=== PATIENT | male | born 1975 | race Caucasian/White ===

== ENCOUNTER 2017-01-21 01:05 | Emergency (ER) | payer OTHER ==
--- NOTE | 2017-01-21 01:48 | ED NURSING NOTES ---
Clinical Report - Nurses [facility] [address] [place] [address] 01/21/2017 1:05 Patient: ELÍAS DUKES TRIAGE Triage time 01:15. Acuity: LEVEL 4. Chief Complaint: (Sores on Head, arms and hands). 01:19. Alert. --01:19 Willard De Souza R.N. 01:15 01/21/17. BP: 147/92. HR: 104. RR: 16. O2 saturation: 98% on room air. Temp: 98.4 F (oral). Pain level now: 10/06. --01:19 Willard De Souza R.N. Weight: 102 kg stated. Height/Length: 71 inches Per Patient. BMI: 31.4. --01:18 Willard De Souza R.N. Medications None. --01:18 Willard De Souza R.N. Allergies Codeine. Penicillins. --01:18 Willard De Souza R.N. History Arrived by private vehicle. Historian: patient. Accompanied by friend. Primary physician (Anoop). Onset. (about 1 months ago, worse for the last 3 days). 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 PAST MEDICAL HX: Immunizations: up-to-date. SOCIAL HX: Current every day heavy tobacco smoker- less than 1 pack per day. History of drug use: marijuana. (every other day). No alcohol use. No infectious disease exposure. ABUSE ASSESSMENT: No report of abuse. FALL RISK ASSESSMENT: Fall risk assessment completed. No fall risk identified. NUTRITIONAL RISK ASSESSMENT: The nutritional risk assessment revealed no deficiencies. FUNCTIONAL ASSESSMENT: Functional assessment: no impairments noted. LEARNING NEEDS ASSESSMENT: The learning needs assessment revealed no barriers. SKIN INTEGRITY ASSESSMENT: Skin integrity risk assessment completed. No skin integrity risk identified. --01:19 Willard De Souza R.N. PROBLEMS: Hernia. Carpal Tunnel Syndrome. Hypertension. Headache. Bipolar Disorder. Gastroesophageal Reflux. Abscess. Gastroesophageal Reflux Disease. --01:18 Willard De Souza R.N. ADDITIONAL SURGERIES: Back Surgery. Carpal Tunnel Surgery. Fracture Repair. Heart surgery. Hernia Repair. Inguinal Hernia Repair. --01:18 Willard De Souza R.N. Interventions ID band on patient. To treatment room. --01:19 Willard De Souza R.N. PHYSICAL ASSESSMENT 01:20. Ambulatory to room. GENERAL / NEURO / PSYCH: Alert. Oriented X 4. HEENT: No facial asymmetry noted. Mucous membranes are pink. RESPIRATORY: Respirations not labored. SKIN: Skin is warm and dry. Normal skin turgor. ( numerous sores in various stages of healing on head hands and arms). --01:20 Willard De Souza R.N. NURSING PROGRESS NOTES 01:21. Head of bed elevated. Two patient identifiers checked. Call light placed in reach. Bed placed in lowest position. Brakes of bed on. Patient ready for evaluation- chart flagged. --01:21 Willard De Souza R.N. 01:54 Woke patient to go over discharge instructions. The patient is sleeping. RESPIRATORY: No respiratory distress. SKIN: Skin is warm and dry. Skin color within normal limits. --01:57 Willard De Souza R.N. DISPOSITION / DISCHARGE Departure time: 01:57. Condition at departure: stable. No learning barriers present. Discharge instructions provided and reviewed with the patient. Reviewed medication(s) side effects, precautions, dosing and course information. Prescription(s) given to the patient. Patient verbalized understanding. Written instructions provided in Liberian. The patient was discharged home and accompanied by kiln mechanic. He left the Emergency Department ambulatory and via private vehicle. Claims Auditor driving. FALL RISK ASSESSMENT: Fall risk assessment completed. No fall risk identified. --01:57 Willard De Souza R.N. Locked/Released at 01/21/2017 1:58 by Willard De Souza R.N.
--- NOTE | 2017-01-21 01:48 | ED CLINICAL REPORT ---
Clinical Report - Physicians/Mid Levels [facility] [address] [place] [address] 01/21/2017 1:05 [id number] Time Seen: 01:41 Jan 21 2017. Arrived- By private vehicle. Historian- patient. HISTORY OF PRESENT ILLNESS Chief Complaint: SKIN RASH and LESION. 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 It is described as itchy and painful. It has been located on the right dorsum of hand, left hand and dorsum of hand and scalp and neck. No cause has been identified. (started out as pimple on scalp. Worries about MRSA. Denies doing any methamphetamines. No rash between fingers , in axilla or groin.). Similar symptoms previously: None. Recent medical care: Not recently seen/assessed. REVIEW OF SYSTEMS No fever, chills, sore throat, cough or difficulty breathing. No hoarseness, lump in throat, enlarged lymph nodes, eye irritation or chest pain. No abdominal pain, nausea, difficulty with urination, genital lesions or joint pain. No vomiting. All systems otherwise negative, except as recorded above. PAST HISTORY Hernia. Carpal Tunnel Syndrome. Hypertension. Headache. Bipolar Disorder. Gastroesophageal Reflux. Abscess. Gastroesophageal Reflux Disease. ADDITIONAL SURGERIES: Back Surgery. Carpal Tunnel Surgery. Fracture Repair. Heart surgery. Hernia Repair. Inguinal Hernia Repair. Medications: None. Allergies: Codeine. Penicillins. SOCIAL HISTORY Heavy tobacco smoker (cigarette)- 1 pack per day. Never smoker. History of weekly drug use: marijuana. ADDITIONAL NOTES The nursing notes have been reviewed. PHYSICAL EXAM Vital Signs: 01/21/2017 01:15 BP: 147/92. HR: 104. RR: 16. O2 saturation: 98%. Temp: 98.4 F. Pain level now: 3/10. Appearance: Alert. No acute distress. Anxious. Eyes: Pupils equal, round and reactive to light. Conjunctivae and eyelids normal. ENT: Pharynx normal. Neck: Neck supple. Respiratory: No respiratory distress. Abdomen: Nontender. Skin: Rash present on the scalp (Pt has a shaved area of the scalp at the vertex that appears to be a healing excoriations. Pt claims there are worms here and she wants this part of her scalp removed today.). Extremities: Extremities nontender. (neurogenic picking over the hands and posterior neck,). Neuro: Oriented X 3. No motor deficit. No sensory deficit. PROGRESS AND PROCEDURES Course of Care: Pt clearly delusional and hallucinating. She feels she has worms over the scalp and other skin areas on her extremities. 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 Pt already has a dermatology referral and I reassured her that she should get an expert opinion before removing scalp tissue. Patient/family counseled. Disposition: Discharged. Condition: stable and unchanged. CLINICAL IMPRESSION Skin picking over hands, scalp and neck with secondary infection. INSTRUCTIONS Warnings: Further evaluation is necessary. Prescription Medications: Bactrim DS 800 mg / 160 mg: Take 1 tablet orally every 12 hours for 7 days. Dispense fourteen (14). No refills. Substitution is permissible. Cleocin topical solution: Apply to affected areas bid for 1 week. # 1 bottle. OTC Medications: Acetaminophen (available over the counter): take according to label instructions. Follow-up: Follow up with your doctor in five days if not better. Understanding of the discharge instructions verbalized by patient. (Electronically signed by Kavon Berry MD 01/24/2017 6:45)
--- NOTE | 2017-01-21 01:48 | ED NURSING NOTES ---
Clinical Report - Nurses [facility] [address] [place] [address] 01/21/2017 1:05 Patient: ELÍAS DUKES TRIAGE Triage time 01:15. Acuity: LEVEL 4. Chief Complaint: (Sores on Head, arms and hands). 01:19. Alert. --01:19 Willard De Souza R.N. 01:15 01/21/17. BP: 147/92. HR: 104. RR: 16. O2 saturation: 98% on room air. Temp: 98.4 F (oral). Pain level now: 10/06. --01:19 Willard De Souza R.N. Weight: 102 kg stated. Height/Length: 71 inches Per Patient. BMI: 31.4. --01:18 Willard De Souza R.N. Medications None. --01:18 Willard De Souza R.N. Allergies Codeine. Penicillins. --01:18 Willard De Souza R.N. History Arrived by private vehicle. Historian: patient. Accompanied by friend. Primary physician (Anoop). Onset. (about 1 months ago, worse for the last 3 days). 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 PAST MEDICAL HX: Immunizations: up-to-date. SOCIAL HX: Current every day heavy tobacco smoker- less than 1 pack per day. History of drug use: marijuana. (every other day). No alcohol use. No infectious disease exposure. ABUSE ASSESSMENT: No report of abuse. FALL RISK ASSESSMENT: Fall risk assessment completed. No fall risk identified. NUTRITIONAL RISK ASSESSMENT: The nutritional risk assessment revealed no deficiencies. FUNCTIONAL ASSESSMENT: Functional assessment: no impairments noted. LEARNING NEEDS ASSESSMENT: The learning needs assessment revealed no barriers. SKIN INTEGRITY ASSESSMENT: Skin integrity risk assessment completed. No skin integrity risk identified. --01:19 Willard De Souza R.N. PROBLEMS: Hernia. Carpal Tunnel Syndrome. Hypertension. Headache. Bipolar Disorder. Gastroesophageal Reflux. Abscess. Gastroesophageal Reflux Disease. --01:18 Willard De Souza R.N. ADDITIONAL SURGERIES: Back Surgery. Carpal Tunnel Surgery. Fracture Repair. Heart surgery. Hernia Repair. Inguinal Hernia Repair. --01:18 Willard De Souza R.N. Interventions ID band on patient. To treatment room. --01:19 Willard De Souza R.N. PHYSICAL ASSESSMENT 01:20. Ambulatory to room. GENERAL / NEURO / PSYCH: Alert. Oriented X 4. HEENT: No facial asymmetry noted. Mucous membranes are pink. RESPIRATORY: Respirations not labored. SKIN: Skin is warm and dry. Normal skin turgor. ( numerous sores in various stages of healing on head hands and arms). --01:20 Willard De Souza R.N. NURSING PROGRESS NOTES 01:21. Head of bed elevated. Two patient identifiers checked. Call light placed in reach. Bed placed in lowest position. Brakes of bed on. Patient ready for evaluation- chart flagged. --01:21 Willard De Souza R.N. 01:54 Woke patient to go over discharge instructions. The patient is sleeping. RESPIRATORY: No respiratory distress. SKIN: Skin is warm and dry. Skin color within normal limits. --01:57 Willard De Souza R.N. DISPOSITION / DISCHARGE Departure time: 01:57. Condition at departure: stable. No learning barriers present. Discharge instructions provided and reviewed with the patient. Reviewed medication(s) side effects, precautions, dosing and course information. Prescription(s) given to the patient. Patient verbalized understanding. Written instructions provided in [place]ic. The patient was discharged home and accompanied by plumbing foreman. He left the Emergency Department ambulatory and via private vehicle. Income Auditor driving. FALL RISK ASSESSMENT: Fall risk assessment completed. No fall risk identified. --01:57 Willard De Souza R.N. Locked/Released at 01/21/2017 1:58 by Willard De Souza R.N.
--- NOTE | 2017-01-21 01:48 | ED CLINICAL REPORT ---
Clinical Report - Physicians/Mid Levels [facility] [address] [place] [address] 01/21/2017 1:05 [id number] Time Seen: 01:41 Jan 21 2017. Arrived- By private vehicle. Historian- patient. HISTORY OF PRESENT ILLNESS Chief Complaint: SKIN RASH and LESION. 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 It is described as itchy and painful. It has been located on the right dorsum of hand, left hand and dorsum of hand and scalp and neck. No cause has been identified. (started out as pimple on scalp. Worries about MRSA. Denies doing any methamphetamines. No rash between fingers , in axilla or groin.). Similar symptoms previously: None. Recent medical care: Not recently seen/assessed. REVIEW OF SYSTEMS No fever, chills, sore throat, cough or difficulty breathing. No hoarseness, lump in throat, enlarged lymph nodes, eye irritation or chest pain. No abdominal pain, nausea, difficulty with urination, genital lesions or joint pain. No vomiting. All systems otherwise negative, except as recorded above. PAST HISTORY Hernia. Carpal Tunnel Syndrome. Hypertension. Headache. Bipolar Disorder. Gastroesophageal Reflux. Abscess. Gastroesophageal Reflux Disease. ADDITIONAL SURGERIES: Back Surgery. Carpal Tunnel Surgery. Fracture Repair. Heart surgery. Hernia Repair. Inguinal Hernia Repair. Medications: None. Allergies: Codeine. Penicillins. SOCIAL HISTORY Heavy tobacco smoker (cigarette)- 1 pack per day. Never smoker. History of weekly drug use: marijuana. ADDITIONAL NOTES The nursing notes have been reviewed. PHYSICAL EXAM Vital Signs: 01/21/2017 01:15 BP: 147/92. HR: 104. RR: 16. O2 saturation: 98%. Temp: 98.4 F. Pain level now: 3/10. Appearance: Alert. No acute distress. Anxious. Eyes: Pupils equal, round and reactive to light. Conjunctivae and eyelids normal. ENT: Pharynx normal. Neck: Neck supple. Respiratory: No respiratory distress. Abdomen: Nontender. Skin: Rash present on the scalp (Pt has a shaved area of the scalp at the vertex that appears to be a healing excoriations. Pt claims there are worms here and she wants this part of her scalp removed today.). Extremities: Extremities nontender. (neurogenic picking over the hands and posterior neck,). Neuro: Oriented X 3. No motor deficit. No sensory deficit. PROGRESS AND PROCEDURES Course of Care: Pt clearly delusional and hallucinating. She feels she has worms over the scalp and other skin areas on her extremities. 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 Pt already has a dermatology referral and I reassured her that she should get an expert opinion before removing scalp tissue. Patient/family counseled. Disposition: Discharged. Condition: stable and unchanged. CLINICAL IMPRESSION Skin picking over hands, scalp and neck with secondary infection. INSTRUCTIONS Warnings: Further evaluation is necessary. Prescription Medications: Bactrim DS 800 mg / 160 mg: Take 1 tablet orally every 12 hours for 7 days. Dispense fourteen (14). No refills. Substitution is permissible. Cleocin topical solution: Apply to affected areas bid for 1 week. # 1 bottle. OTC Medications: Acetaminophen (available over the counter): take according to label instructions. Follow-up: Follow up with your doctor in five days if not better. Understanding of the discharge instructions verbalized by patient. (Electronically signed by Kavon Berry MD 01/24/2017 6:45)
--- NOTE | 2017-01-24 06:46 | ED MED RECONCILIATION SUMMARY ---
Patient: ELÍAS DUKES Medication Reconciliation Report [facility] VisitID: [id number] [address] [place] [address] 41y, M Registration Date/Time: 01/21/2017 Weight: 102.0 kg Height/Length: 71 in. BMI: 31.4 ALLERGIES: Codeine, Penicillins The patient's Home Medications are listed below: NONE. The source(s) of the original Home Medication information: Not obtained. The following Medications were given to the patient in the Emergency Department: None. The following Medications were prescribed to the patient: Acetaminophen (available over the counter): take according to label instructions. -- Kavon Berry MD Cleocin topical solution: Apply to affected areas bid for 1 week. # 1 bottle. -- Kavon Berry MD Bactrim DS 800 mg / 160 mg: Take 1 tablet orally every 12 hours for 7 days. Dispense fourteen (14). No refills. Substitution is permissible. -- Kavon Berry MD
--- NOTE | 2017-01-24 06:46 | ED DISCHARGE INSTRUCTIONS ---
Patient: ELÍAS DUKES General Instructions [facility] VisitID: [id number] [address] [place] [address] 41y, M Registration Date/Time: 01/21/2017 Skin picking over hands, scalp and neck with secondary infection. INSTRUCTIONS Warnings: Further evaluation is necessary. Prescription Medications: Bactrim DS 800 mg / 160 mg: Take 1 tablet orally every 12 hours for 7 days. Dispense fourteen (14). No refills. Substitution is permissible. Cleocin topical solution: Apply to affected areas bid for 1 week. # 1 bottle. OTC Medications: Acetaminophen (available over the counter): take according to label instructions. Follow-up: Follow up with your doctor in five days if not better. Understanding of the discharge instructions verbalized by patient. (Electronically signed by Kavon Berry MD 01/24/2017 6:45)
--- NOTE | 2017-01-24 06:46 | ED MAR SUMMARY ---
..... Medication Administration Record [facility] [address], [place] [id number] Patient: ELÍAS DUKES Visit ID: [id number] 41y, M Weight: 102.0 kg Height/Length: 71 in BMI: 31.4 ALLERGIES: Codeine, Penicillins
--- NOTE | 2017-01-24 06:46 | ED MAR SUMMARY ---
..... Medication Administration Record [facility] [address] [place], [place] [id number] Patient: ELÍAS DUKES Visit ID: [id number] 41y, M Weight: 102.0 kg Height/Length: 71 in BMI: 31.4 ALLERGIES: Codeine, Penicillins
--- NOTE | 2017-01-24 06:46 | ED MED RECONCILIATION SUMMARY ---
Patient: ELÍAS DUKES Medication Reconciliation Report [facility] VisitID: [id number] [address] [place] [address] 41y, M Registration Date/Time: 01/21/2017 Weight: 102.0 kg Height/Length: 71 in. BMI: 31.4 ALLERGIES: Codeine, Penicillins The patient's Home Medications are listed below: NONE. The source(s) of the original Home Medication information: Not obtained. The following Medications were given to the patient in the Emergency Department: None. The following Medications were prescribed to the patient: Acetaminophen (available over the counter): take according to label instructions. -- Kavon Berry MD Cleocin topical solution: Apply to affected areas bid for 1 week. # 1 bottle. -- Kavon Berry MD Bactrim DS 800 mg / 160 mg: Take 1 tablet orally every 12 hours for 7 days. Dispense fourteen (14). No refills. Substitution is permissible. -- Kavon Berry MD
--- NOTE | 2017-01-24 06:46 | ED DISCHARGE INSTRUCTIONS ---
Patient: ELÍAS DUKES General Instructions [facility] VisitID: [id number] [address] [place] [address] 41y, M Registration Date/Time: 01/21/2017 Skin picking over hands, scalp and neck with secondary infection. INSTRUCTIONS Warnings: Further evaluation is necessary. Prescription Medications: Bactrim DS 800 mg / 160 mg: Take 1 tablet orally every 12 hours for 7 days. Dispense fourteen (14). No refills. Substitution is permissible. Cleocin topical solution: Apply to affected areas bid for 1 week. # 1 bottle. OTC Medications: Acetaminophen (available over the counter): take according to label instructions. Follow-up: Follow up with your doctor in five days if not better. Understanding of the discharge instructions verbalized by patient. (Electronically signed by aKvon Berry MD 01/24/2017 6:45)
== END 2017-01-21 01:57 | disposition home or self-care (01) ==
LOC: ED SRH 01:05
DX: F42.4 Excoriation (skin-picking) disorder (principal); L08.9 Local infection of the skin and subcutaneous tissue, unspecified; I10 Essential (primary) hypertension; F31.9 Bipolar disorder, unspecified; F17.210 Nicotine dependence, cigarettes, uncomplicated; Z88.0 Allergy status to penicillin; Z88.5 Allergy status to narcotic agent